=== PATIENT | female | born 2000 | race Hispanic/Latino ===

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

== ENCOUNTER 2021-01-18 13:51 | Emergency (ER) | payer OTHER ==
--- OUTSIDE RECORDS SUMMARY | 2021-01-18 13:55 | XMS REPORT | Continuity of Care Document ---
:2000 Author Organization [facility] t Address [address] [place] [address] Care Team Providers Name Role Phone Jason Echols DO Attending Clinician Uriah Rivero Attending Clinician Doctor Unassigned, Name Attending Clinician Unavailable Problems This patient has no known problems. Allergies, Adverse Reactions, Alerts This patient has no known allergies or adverse reactions. Medications This patient has no known medications. Procedures This patient has no known procedures. Encounters Start End Encounter Admission Attending Care Care Encounter Source Date/Time Date/Time Type Type Clinicians Facility Department ID 2020-11-02 2020-11-02 Patient Onesimo TNGENOVEVA [id number] 00:00:00 00:00:00 Outreach [facility] [id number] Jason [facility] [id number] ROSANA [id number] 2020-06-24 2020-06-24 Office Destiny [facility] [id number] 08:45:05 09:58:03 Visit Orin Kruse HOUSEHOLD MANAGER [id number] [facility] [id number] MATERNAL [id number] & CHILD [address] [place] [address] 2020-06-24 2020-06-24 Orders Doctor JANE [id number] 00:00:00 00:00:00 Only UnassignedOLLIE [id number] [place] [id number] Results This patient has no known results.
[2021-01-18 14:31] LABS: Urine Blood 2+ (Negative); Urine Glucose Negative (Negative); Urine Protein Negative (Negative); Urine Specific Gravity 1.025 (1.005-1.030); Urine pH 5.5 (5.0-7.0)
--- NOTE | 2021-01-18 14:59 | RAD REPORT ---
EXAM DESCRIPTION: CT - Head Brain Wo Cont - 01/18/2021 2:40 pm CLINICAL HISTORY: Seizure COMPARISON: None TECHNIQUE: Computed axial tomography of the head was obtained. IV contrast was not requested. All CT scans are performed using dose optimization technique as appropriate and may include automated exposure control or mA/KV adjustment according to patient size. FINDINGS: An intracranial bleed is not seen . The ventricles are normal in caliber. No extra-axial fluid collection is noted. A few of the images are degraded by artifact from the earrings Fluid within the sinuses/ mastoids is not seen. IMPRESSION: No acute intracranial abnormality is seen. If patient's symptoms persist MRI of the bra in would be recommended.
[2021-01-18 15:00] LABS: Absolute Lymphocytes (CBC) 1.8 K/uL (0.7-4.9); Basophils % 0.6 % (0-1.3); Hematocrit 40.7 % (36.0-45.0); Lymphocytes % 27.1 % (15.3-44.8); MPV 8.1 fL (7.6-11.3); RBC Red Blood Cell Count 4.67 M/uL (3.86-4.86)
[2021-01-18 15:14] LABS: BUN Blood Urea Nitrogen 13 mg/dL (7-18); Bicarbonate 28 mmol/L (21-32); Glucose Level 85 mg/dL (74-106); Magnesium 2.1 mg/dL (1.8-2.4); Potassium 4.2 mmol/L (3.5-5.1); Sodium Level 141 mmol/L (136-145)
[2021-01-18 15:27] LABS: Urine Specific Gravity/Preg 1.025 (1.005-1.030)
--- NOTE | 2021-01-18 15:36 | ER ---
Nurse's Notes [facility] Name: Kimberlee Sutton Age: 20 yrs Sex: Female : 2000 Arrival Date: 01/18/2021 Time: 13:56 Bed 25 Private MD: None, None Diagnosis: Unspecified convulsions Presentation: 01/18 14:15 Chief complaint: Patient states: " My said that on Sunday night it looked like ph I had a seizure. I don't really remember it though." Reports that she was lying down at the time, remembers feeling anxious when it happened. told her that she had rapid respirations and teeth were chattering when episode happened. Reports feeling tired and having headaches recently. No hx of seizures. Coronavirus screen: At this time, the client does not indicate any symptoms associated with coronavirus-19. Ebola Screen: No symptoms or risks identified at this time. Initial Sepsis Screen: Does the patient meet any 2 criteria? No. Patient's initial sepsis screen is negative. Does the patient have a suspected source of infection? No. Patient's initial sepsis screen is negative. Risk Assessment: Do you want to hurt yourself or someone else? Patient reports no desire to harm self or others. Onset of symptoms was January 18, 2021. 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 Flu vaccine is not up to date. - Social history:: Smoking status: Patient denies any tobacco usage or history of. Screenin:24 Abuse screen: Denies threats or abuse. Denies injuries from another. Nutritional ca1 screening: No deficits noted. Tuberculosis screening: No symptoms or risk factors identified. Fall Risk IV access (20 points). Assessment: 14:24 General: Appears in no apparent distress. comfortable, Behavior is calm, cooperative, ca1 appropriate for age. Pain: Complains of pain in face and scalp Pain. Neuro: Level of Consciousness is awake, alert, obeys commands, Oriented to person, place, time, situation. Cardiovascular: Heart tones S1 S2 present Capillary refill < 3 seconds Patient's skin is warm and dry. Rhythm is sinus rhythm. Respiratory: Airway is patent Respiratory effort is even, unlabored, Respiratory pattern is regular, symmetrical, Breath sounds are clear bilaterally. GI: Abdomen is flat, non-distended, Bowel sounds present X 4 quads. Abd is soft and non tender X 4 quads. : No signs and/or symptoms were reported regarding the genitourinary system. EENT: No signs and/or symptoms were reported regarding the EENT system. Derm: Skin is intact, is healthy with good turgor, Skin is pink, warm \\T\\ dry. Musculoskeletal: Circulation, motion, and sensation intact. Capillary refill < 3 seconds. 15:18 Reassessment: Patient appears in no apparent distress at this time. Patient and/or ca1 family updated on plan of care and expected duration. Pain level reassessed. Patient is alert, oriented x 3, equal unlabored respirations, skin warm/dry/pink. 16:01 Reassessment: Patient appears in no apparent distress at this time. Patient is alert, ca1 oriented x 3, equal unlabored respirations, skin warm/dry/pink. Vital Signs: 14:15 BP 128 / 94; Pulse 72; Resp 18; Temp 98.6; Pulse Ox 99% on R/A; Weight 77.11 kg; Height ph 5 ft. 6 in. (167.64 cm); 15:18 BP 113 / 69; Pulse 58; Resp 18 S; Pulse Ox 99% on R/A; ca1 16:01 BP 126 / 76; Pulse 62; Resp 16 S; Pulse Ox 99% on R/A; ca1 14:15 Body Mass Index 27.44 (77.11 kg, 167.64 cm) ph ED Course: 13:56 Patient arrived in ED. hh 13:57 None, None is Private Physician. hh 14:20 Triage completed. ph 14:20 Tigist John FNP-C is [facility]. kb 14:20 Ivan Morales MD is Attending Physician. kb 14:20 Chey Leung, LAUREL is Primary Nurse. ca1 14:24 Patient has correct armband on for positive identification. Placed in gown. Bed in low ca1 position. Call light in reach. Side rails up X2. monitor worker on. Pulse ox on. NIBP on. Warm blanket given. 14:24 Door closed. Noise minimized. Lights dimmed. ca1 14:24 Arm band placed on right wrist. ca1 14:39 CT Head Brain wo Cont In Process Unspecified. EDMS 14:51 Magnesium Sent. em1 14:51 Basic Metabolic Panel Sent. em1 14:51 CBC with Diff Sent. em1 14:51 Initial lab(s) drawn, by me, sent to lab. Inserted saline lock: 22 gauge in left em1 antecubital area, using aseptic technique. Blood collected. 15:35 Fredi Sidhu MD is Referral Physician. kb 16:02 No provider procedures requiring assistance completed. IV discontinued, intact, ca1 bleeding controlled, No redness/swelling at site. Pressure dressing applied. Administered Medications: No medications were administered Outcome: 15:35 Discharge ordered by MD. kb 16:02 Discharged to home ambulatory. ca1 16:02 Condition: stable 16:02 Discharge instructions given to patient, Instructed on discharge instructions, follow up and referral plans. Demonstrated understanding of instructions, follow-up care. 16:02 Patient left the ED. ca1 Signatures: Dispatcher [employer] EDNV Tigist John, ERMA BESTP-Colin Martino em1 Tiarra Moon, RN RN Chey Leung RN RN ca1 Marta Castrejon Corrections: (The following items were deleted from the chart) 14:35 14:34 Social history: Smoking status: ca1 ca1
--- NOTE | 2021-01-18 16:03 | EDPHYS ---
Physician Documentation [facility] Name: Kimberlee Sutton Age: 20 yrs Sex: Female : 2000 Arrival Date: 01/18/2021 Time: 13:56 Bed 25 Private MD: None, None ED Physician Ivan Morales HPI: 01/18 15:59 This 20 yrs old Female presents to ER via Ambulatory with complaints of had kb seizure 01/16/21. 16:04 The patient presents after having a single isolated seizure, that lasted an unknown kb period of time. Character of seizure(s): Loss of consciousness: it is not known if the patient experienced loss of consciousness, Motor activity: generalized, shaking all over, Incontinence: none, Apnea: the patient did not experience apnea. Seizure onset: 2 days ago. Context: the seizure(s) was witnessed, by family, , occurred at home, occurred while the patient was sitting, Contributing factors: unknown. Seizure Hx: the patient has no previous seizure history. Associated injury: The patient did not suffer any apparent associated injury. Current symptoms: Currently, the patient is not experiencing any symptoms, the patient feels back to baseline, no decreased level of consciousness, no confusion, no dysphasia, no headache, no paralysis, no visual changes. The patient has not experienced similar symptoms in the past. The patient has not recently seen a physician. Pt states she was sitting in bed talking with 2 nights ago and had a seizure. States her told her she was breathing fast and shaking all over. States she had a headache after and felt very tired. States she has been very stressed out lately. Denies any drug use. States she has been fine since the seizure occurred. Was going to go to her PCP for this, but they weren't able to get her in until next week and her wanted her evaluated sooner so she came here. 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 Flu vaccine is not up to date. - Social history:: Smoking status: Patient denies any tobacco usage or history of. ROS: 16:01 Constitutional: Negative for fever, chills, and weight loss. kb 16:01 Neuro: Positive for headache, seizure activity. 16:01 All other systems are negative. Exam: 16:01 Constitutional: This is a well developed, well nourished patient who is awake, alert, kb and in no acute distress. Head/Face: Normocephalic, atraumatic. Eyes: Pupils equal round and reactive to light, extra-ocular motions intact. Lids and lashes normal. Conjunctiva and sclera are non-icteric and not injected. Cornea within normal limits. Periorbital areas with no swelling, redness, or edema. ENT: Moist Mucous membranes Cardiovascular: Regular rate and rhythm with a normal S1 and S2. No gallops, murmurs, or rubs. No pulse deficits. Respiratory: Respirations even and unlabored. No increased work of breathing, no retractions or nasal flaring. Abdomen/GI: Soft, non-tender. No distention Skin: Warm, dry with normal turgor. Normal color. MS/ Extremity: Pulses equal, no cyanosis. Neurovascular intact. Full, normal range of motion. Neuro: Awake and alert, GCS 15, oriented to person, place, time, and situation. Moves all extremities. Normal gait. Psych: Awake, alert, with orientation to person, place and time. Behavior, mood, and affect are within normal limits. Vital Signs: 14:15 BP 128 / 94; Pulse 72; Resp 18; Temp 98.6; Pulse Ox 99% on R/A; Weight 77.11 kg; Height ph 5 ft. 6 in. (167.64 cm); 15:18 BP 113 / 69; Pulse 58; Resp 18 S; Pulse Ox 99% on R/A; ca1 16:01 BP 126 / 76; Pulse 62; Resp 16 S; Pulse Ox 99% on R/A; ca1 14:15 Body Mass Index 27.44 (77.11 kg, 167.64 cm) ph MDM: 14:22 Patient medically screened. kb 16:00 Data reviewed: vital signs, nurses notes. Data interpreted: Pulse oximetry: on room air kb is 99 %. Interpretation: normal. Counseling: I had a detailed discussion with the patient and/or guardian regarding: the historical points, exam findings, and any diagnostic results supporting the discharge/admit diagnosis, lab results, radiology results, the need for outpatient follow up, a neurologist, to return to the emergency department if symptoms worsen or persist or if there are any questions or concerns that arise at home. 01/18 14:22 Order name: CBC with Diff; Complete Time: 15:09 kb 01/18 14:22 Order name: Basic Metabolic Panel; Complete Time: 15:26 kb 01/18 14:22 Order name: Magnesium; Complete Time: 15:26 kb 01/18 14:22 Order name: CT Head Brain wo Cont; Complete Time: 15:01 kb 01/18 14:31 Order name: Urine Dipstick-Ancillary; Complete Time: 14:32 EDMS 01/18 14:41 Order name: Urine --Ancillary (enter results); Complete Time: 15:31 bd 01/18 14:22 Order name: IV Start; Complete Time: 14:51 kb 01/18 14:22 Order name: EKG; Complete Time: 14:22 kb 01/18 14:22 Order name: EKG - Nurse/Tech; Complete Time: 14:35 kb 01/18 14:22 Order name: Urine Dipstick-Ancillary (obtain specimen); Complete Time: 14:35 kb Administered Medications: No medications were administered Disposition: 18:24 Co-signature as Attending Physician, Ivan Morales MD. rn Disposition: 01/18/21 15:35 Discharged to Home. Impression: Unspecified convulsions. - Condition is Stable. - Discharge Instructions: Seizure, Adult, [id number]. - Medication Reconciliation Form, Thank You Letter, Antibiotic Education, Prescription Opioid Use form. - Follow up: Emergency Department; When: As needed; Reason: Worsening of condition. Follow up: Private Physician; When: 2 - 3 days; Reason: Recheck today's complaints, Continuance of care, Re-evaluation by your physician. Follow up: Fredi Sidhu MD; When: 1 - 2 days. Signatures: Dispatcher [employer] EDTigist Proctor, BETTIEC LINDA-Ivan Pabon MD MD rn AcobChey RN RN ca1 Corrections: (The following items were deleted from the chart) 14:35 14:34 Social history: Smoking status: ca1 ca1 15:36 15:35 01/18/2021 15:35 Discharged to Home. Impression: Unspecified convulsions. kb Condition is Stable. Forms are Medication Reconciliation Form, Thank You Letter, Antibiotic Education, Prescription Opioid Use. Follow up: Emergency Department; When: As needed; Reason: Worsening of condition. Follow up: Private Physician; When: 2 - 3 days; Reason: Recheck today's complaints, Continuance of care, Re-evaluation by your physician. kb 16:02 15:36 01/18/2021 15:35 Discharged to Home. Impression: Unspecified convulsions. ca1 Condition is Stable. Discharge Instructions: Seizure, Adult, [id number]. Forms are Medication Reconciliation Form, Thank You Letter, Antibiotic Education, Prescription Opioid Use. Follow up: Emergency Department; When: As needed; Reason: Worsening of condition. Follow up: Private Physician; When: 2 - 3 days; Reason: Recheck today's complaints, Continuance of care, Re-evaluation by your physician. Follow up: Fredi Sidhu; When: 1 - 2 days. kb
[2021-01-18 17:03] VITALS: TEMP 98.6; O2SAT 99
[2021-01-18 17:06] VITALS: BP 126/76
--- NOTE | 2021-01-19 16:01 | EKG ---
Test Date: 2021-01-18 Test Time: 14:31:48 Draw Frame Operator: KARO MEASUREMENT RESULTS: Intervals: Rate: 75 MO: 120 QRSD: 74 QT: 372 QTc: 415 Donald: P: 39 MO: 120 QRS: 80 T: 46 INTERPRETIVE STATEMENTS: Normal sinus rhythm with sinus arrhythmia Normal ECG No previous ECG available for comparison Electronically Signed On 01-19-21 16:00:02 CDT by Pato Larose
== END 2021-01-18 16:02 | disposition home or self-care (01) ==
LOC: ER 13:51
DX: R56.9 Unspecified convulsions (principal)
CPT/HCPCS: 36415; 70450; 80048; 81003; 81025; 83735; 85025; 93005; 99284

== ENCOUNTER 2022-01-08 22:13 | Emergency (ER) | payer OTHER ==
[2022-01-08] MEDS ORDERED: predniSONE 20 MG TAB ONE (22:48)
[2022-01-08] MEDS ORDERED: SMZ./TMP. 800/160 MG TABLET ONE (22:48)
--- NOTE | 2022-01-08 22:49 | ER ---
Nurse's Notes [facility] Name: Kimberlee Sutton Age: 21 yrs Sex: Female : 2000 Arrival Date: 01/08/2022 Time: 22:23 Bed 9 Private MD: Diagnosis: Toxic effect of venom of bees, undetermined, initial encounter Presentation: 01/08 22:28 Chief complaint: Patient states: Bee sting to right thigh yesterday - today it is ld1 swollen and red. Coronavirus screen: At this time, the client does not indicate any symptoms associated with coronavirus-19. Ebola Screen: No symptoms or risks identified at this time. Onset: The symptoms/episode began/occurred suddenly. Anaphylaxis evaluation, no signs or symptoms of anaphylaxis were noted. Initial Sepsis Screen: Does the patient meet any 2 criteria? No. Patient's initial sepsis screen is negative. Does the patient have a suspected source of infection? No. Patient's initial sepsis screen is negative. Risk Assessment: Do you want to hurt yourself or someone else? Patient reports no desire to harm self or others. Onset of symptoms was January 08, 2022. 22:28 Method Of Arrival: Ambulatory ld1 22:28 Acuity: MENDOZA 4 ld1 Triage Assessment: 22:29 General: Appears in no apparent distress. comfortable, Behavior is calm, cooperative, ld1 appropriate for age. Pain: Denies pain. EENT: No signs and/or symptoms were reported regarding the EENT system. Neuro: Level of Consciousness is awake, alert, obeys commands, Oriented to person, place, time, situation. Cardiovascular: Capillary refill < 3 seconds Patient's skin is warm and dry. Respiratory: Airway is patent Respiratory effort is even, unlabored. Derm: Rash noted that is on right leg. 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 - Social history:: Smoking status: Patient denies any tobacco usage or history of. Patient/guardian denies using alcohol. - Family history:: not pertinent. - Hospitalizations: : No recent hospitalization is reported. Screenin:03 Abuse screen: Denies threats or abuse. Denies injuries from another. Nutritional lp1 screening: No deficits noted. Tuberculosis screening: No symptoms or risk factors identified. Fall Risk None identified. Assessment: 22:40 General: Appears in no apparent distress. Behavior is calm, cooperative. Pain: lp1 Complains of pain in lateral aspect of right thigh. Neuro: Level of Consciousness is awake, alert, obeys commands. Cardiovascular: Patient's skin is warm and dry. Respiratory: Respiratory effort is even, unlabored. GI: No signs and/or symptoms were reported involving the gastrointestinal system. : No signs and/or symptoms were reported regarding the genitourinary system. EENT: No signs and/or symptoms were reported regarding the EENT system. Derm: redness, swelling noted to lateral right upper thigh. Musculoskeletal: No deficits noted. Vital Signs: 22:28 BP 112 / 64; Pulse 79; Resp 18; Temp 98.4(O); Pulse Ox 100% on R/A; Weight 65.77 kg; ld1 Height 5 ft. 6 in. (167.64 cm); Pain 0/10; 22:28 Body Mass Index 23.40 (65.77 kg, 167.64 cm) ld1 ED Course: 22:23 Patient arrived in ED. bp1 22:29 Triage completed. ld1 22:29 Arm band placed on right wrist. ld1 22:31 Ivan Morales MD is Attending Physician. rn 22:41 Yumiko Hernandez RN is Primary Nurse. lp1 23:03 No provider procedures requiring assistance completed. Patient did not have IV access lp1 during this emergency room visit. 23:04 Patient has correct armband on for positive identification. lp1 Administered Medications: 22:44 Drug: predniSONE 60 mg Route: PO; lp1 23:07 Follow up: Response: No adverse reaction lp1 22:45 Drug: Bactrim (trimethoprim-sulfamethoxazole) (160 mg-800 mg (DS) 1 tablet Route: PO; lp1 23:07 Follow up: Response: No adverse reaction lp1 Medication: 23:03 VIS not applicable for this client. lp1 Outcome: 22:49 Discharge ordered by . rn 23:04 Discharged to home ambulatory. lp1 23:04 Condition: good 23:04 Discharge instructions given to patient, Instructed on discharge instructions, follow up and referral plans. medication usage, Demonstrated understanding of instructions, follow-up care, medications. 23:04 Prescriptions given X 2. lp1 23:07 Patient left the ED. lp1 Signatures: Ivan Morales MD MD rn Pena, Laura, RN RN lp1 Delmy King Lauren RN RN ld1
--- NOTE | 2022-01-08 22:49 | EDPHYS ---
Physician Documentation [facility] Name: Kimberlee Sutton Age: 21 yrs Sex: Female : 2000 Arrival Date: 01/08/2022 Time: 22:23 Bed 9 Private MD: ED Physician Ivan Morales HPI: 01/08 22:44 This 21 yrs old Female presents to ER via Ambulatory with complaints of Bee rn Sting. 22:44 The patient presents with pain, swelling, tenderness. The complaints affect the right rn quadriceps. Onset: The symptoms/episode began/occurred yesterday. Modifying factors: The symptoms are alleviated by nothing. the symptoms are aggravated by nothing. Severity of symptoms: At their worst the symptoms were mild, in the emergency department the symptoms are unchanged. The patient has not experienced similar symptoms in the past. The patient has not recently seen a physician. Pt reports stung by bee yesterday, to right anterior thigh, got worse today with increased swelling and painful. No fever. Able to work but got sore today.. 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 - Social history:: Smoking status: Patient denies any tobacco usage or history of. Patient/guardian denies using alcohol. - Family history:: not pertinent. - Hospitalizations: : No recent hospitalization is reported. ROS: 22:44 Constitutional: Negative for fever, chills, and weight loss, Cardiovascular: Negative rn for chest pain, palpitations, and edema, Respiratory: Negative for shortness of breath, cough, wheezing, and pleuritic chest pain, Abdomen/GI: Negative for abdominal pain, nausea, vomiting, diarrhea, and constipation, MS/Extremity: + bee sting to right anterior thigh Skin: + induration and swelling to right thigh Exam: 22:44 Constitutional: This is a well developed, well nourished patient who is awake, alert, rn and in no acute distress. Cardiovascular: Regular rate and rhythm. No pulse deficits. Skin: Warm, dry, 8cm area of induration with warmth and erythema, no fluctuance, no stinger identified. MS/ Extremity: Pulses equal, no cyanosis. Neurovascular intact. Full, normal range of motion. Equal circumference. Vital Signs: 22:28 BP 112 / 64; Pulse 79; Resp 18; Temp 98.4(O); Pulse Ox 100% on R/A; Weight 65.77 kg; ld1 Height 5 ft. 6 in. (167.64 cm); Pain 0/10; 22:28 Body Mass Index 23.40 (65.77 kg, 167.64 cm) ld1 MDM: 22:32 Patient medically screened. rn 22:44 Differential diagnosis: bee sting, cellulitis, local allergic reaction. Data reviewed: rn vital signs, nurses notes, and as a result, I will discharge patient. Counseling: I had a detailed discussion with the patient and/or guardian regarding: the historical points, exam findings, and any diagnostic results supporting the discharge/admit diagnosis, the need for outpatient follow up, to return to the emergency department if symptoms worsen or persist or if there are any questions or concerns that arise at home. Special discussion: I discussed with the patient/guardian in detail that at this point there is no indication for admission to the hospital. It is understood, however, that if the symptoms persist or worsen the patient needs to return immediately for re-evaluation. Administered Medications: 22:44 Drug: predniSONE 60 mg Route: PO; lp1 23:07 Follow up: Response: No adverse reaction lp1 22:45 Drug: Bactrim (trimethoprim-sulfamethoxazole) (160 mg-800 mg (DS) 1 tablet Route: PO; lp1 23:07 Follow up: Response: No adverse reaction lp1 Disposition Summary: 01/08/22 22:49 Discharge Ordered Location: Home rn Problem: new rn Symptoms: are unchanged rn Condition: Stable rn Diagnosis - Toxic effect of venom of bees, undetermined, initial encounter rn Followup: rn - With: Private Physician - When: As needed - Reason: Recheck today's complaints, Re-evaluation by your physician Discharge Instructions: - Discharge Summary Sheet rn - Bee, Wasp, or Hornet Sting, Adult rn Forms: - Medication Reconciliation Form rn - Thank You Letter rn - 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
[2022-01-08 23:12] VITALS: BP 112/64; TEMP 98.4; O2SAT 100
--- OUTSIDE RECORDS SUMMARY | 2022-01-09 04:38 | XMS REPORT | Continuity of Care Document ---
:2000 Author Organization [facility] t Address [address] [place] [address] Care Team Providers Name Role Phone PCP, DOES NOT HAVE A Primary Care Physician Unavailable Uriah RUIZ Attending Clinician Unavailable Uriah Rivero Attending Clinician Jason Echols DO Attending Clinician Doctor Unassigned, Name Attending Clinician Unavailable Payers Payer Name Policy Type Policy Number Effective Date Expiration Date [facility] [id number] 2016 [facility] MEDICAID 00:00:00 Problems Condition Condition Condition Status Onset Resolution Last Treating Co mments Source Name Details Category Date Date Treatment Clinician Date Nexplanon Nexplanon Disease Active 2019-[address] in [address] 1-12 ity of 00:00: [address] Other Other Disease Active 2019- Univers general general 0-29 ity of counseling [place] advice and advice 00 Me dical for for Branch contracept contracept pooja pooja management management Flu Flu Disease Active Univers vaccine vaccine 1-27 ity of need need 00:00: [address] Allergies, Adverse Reactions, Alerts Allergy Allergy Status Severity Reaction(s) Onset Inactive Treating Comm ents Source Name Type Date Date Clinician NO KNOWN Drug Active Univers ALLERGIE Class ity of [facility] Social History Social Habit Start Date Stop Date Quantity Comments Source Exposure to Not sure University SARS-CoV-2 [place] [facility] (event) Branch Alcohol intake 2021-07-15 2021-07-15 Current drinker Unive rsity of 00:00:00 00:00:00 of alcohol [place] [facility] (finding) Branch History SDOH 2020-06-10 2020-06-10 99 University o f Alcohol Frequency 00:00:00 00:00:00 [place] [facility] History SDOH 2020-06-10 2020-06-10 99 University o f Alcohol Std 00:00:00 00:00:00 [place] [facility] Drinks Branch History SDOH 2020-06-10 2020-06-10 99 University o f Alcohol Binge 00:00:00 00:00:00 [place] [facility] Alcohol Comment 2020-06-10 2020-06-10 social Universit y of 00:00:00 00:00:00 [facility] Tobacco use and 2019-09-08 2019-09-08 Never used Universit y of exposure 00:00:00 00:00:00 [facility] Branch History of 2017-09-08 2019-07-09 Cigarette Smoker Universi ty of tobacco use 00:00:00 00:00:00 [facility] Sex Assigned At [birth year] Universit y of 00:00:00 00:00:00 [facility] Smoking Status Start Date Stop Date Source Former smoker 2019-09-08 00:00:00 2019-09-08 00:00:[address] [facility] Medications Ordered Filled Start Stop Current Ordering Indication Dosage Frequency Signature Comments Components Source Medication Medication Date Date Medication? Clinician (SIG) Name Name docusate Yes [id number] 240mg Take 1 U nivers calcium 240 8-19 capsule by it y of mg capsule 00:00: mouth once [place] daily as Medical needed for Branch Constipati on. ibuprofen Yes [id number] 600mg Take 1 Univers 600 mg 8-19 tablet by ity of tablet 00:00: mouth [place] 00 every 6 Medical (six) Branch hours as needed (Pain). Take with food or milk. Iron Fum & Yes [id number] 1{capsu Take 1 Univers P-FA-Vit B 8-19 le} capsule by ity of & C No.9 00:00: mouth [place] (INTEGRA 00 daily. Medical PLUS) 125 Branch mg iron- 1 mg Cap Immunizations Ordered Filled Immunization Date Status Comments Sourc e Immunization Name Name Influenza Virus 2020-06-10 Completed Universit y of Vaccine Quad .5 mL 00:00:00 [facility] IM 6+ MO Branch Varicella 2020-03-31 Completed [facility] (varivax)(chicken 00:00:00 [place] [facility] ed[facility] pox) Branch HPV9 2020-03-31 Completed [facility] 00:00:00 [facility] TDAP 2020-01-15 Completed [facility] 00:00:00 [facility] Influenza Virus 2019-09-08 Completed Universit y of Vaccine Quad .5 mL 00:00:00 [facility] IM 6+ MO Branch HPV 2019-01-31 Completed [facility] 00:00:00 [facility] TDAP 2017-01-12 Completed [facility] 00:00:00 [facility] Influenza Virus 2016-09-08 Completed Universit y of Vaccine Quad IM 3+ 00:00:00 [facility] Vital Signs Vital Name Observation Time Observation Value Comments Source Systolic blood 2021-09-21 22:23:00 127 mm[Hg] Univer sity of pressure [facility] Diastolic blood 2021-09-21 22:23:00 82 [facility]Hg[facility] 2021-09-21 22:23:00 87 /min [facility] Body temperature 2021-09-21 22:23:00 36.61 Clarisse [facility] Respiratory rate 2021-09-21 22:23:00 20 /min [facility] Body height 2021-09-21 22:23:00 167.6 cm [facility] Body weight 2021-09-21 22:23:00 70.217 kg [facility] BMI 2021-09-21 22:23:00 24.99 kg/m2 [facility] Procedures Procedure Date / Time Performing Clinician Source Performed GC & CHLAMYDIA 2021-09-21 22:47:00 Orin Ruiz [facility] AMPLIFIED [facility] TRICHOMONAS AMPLIFIED 2021-09-21 22:47:00 Orin Ruiz U [facility] POCT TEST 2021-09-21 00:00:00 Orin Ruiz Uni [facility] POCT URINALYSIS W/O 2021-09-21 00:00:00 Orin Ruiz [facility] Encounters Start End Encounter Admission Attending Care Care Encounter Source Date/Time Date/Time Type Type Clinicians Facility Department ID 2021-10-19 2021-10-19 Outpatient R DESTINY [facility] [id number] [facility] 13:15:00 13:15:[address] o [address] [facility] 2021-09-21 2021-09-21 Office Destiny [facility] [id number] Univers 16:00:00 16:50:57 Visit Orin Kruse [employer] [id number] [facility] [id number] Bib as MATERNAL [id number] Med ical & CHILD [address] [place] [address] 2020-11-02 2020-11-02 Patient Onesimo [facility] [id number] 00:00:00 00:00:00 Outreach [facility] [id number] [facility] [id number] PAVHIRO [id number] 2020-06-24 2020-06-24 Office Destiny [facility] [id number] 08:45:05 09:58:03 Visit Orin Kruse [employer] [id number] [facility] [id number] MATERNAL [id number] & CHILD [address] [place] [address] 2020-06-24 2020-06-24 Orders Doctor BUCK [id number] 00:00:00 00:00:00 Only Unassigned, OLLIE [id number] [place] [facility] [id number] Results Test Description Test Time Test Comments Results Result Comments Source POCT TEST 2021-09-21 22:45:00 Test Item Value Reference Range Interpretation Comme nts POCT PREG (test code = 1605) Negative On board controls acceptable with C Line (test code = 3574) Yes POCT PREG LOT # (test code = 3575) POCT PREG TEST DATE (test code = 3576[id number] 22:44:00 Test Item Value Reference Range Interpretation Comments POCT PREG (test code = 1605) Negative On board controls acceptable with C Yes Line (test code = 3574) POCT PREG LOT # (test code = 3575) POCT PREG TEST DATE (test code = 3576) [facility] [id number] 22:35:00 Test Item Value Reference Range Interpretation Comments POCT PH U (test code = 3254) 5 mg/dl 5-8 POCT U LEUK EST (test code = trace Negative - Negative 3263) POCT U NIT (test code = 3262) negative Negative - Negative POCT U PROT (test code = 3259) trace Negative - Negative POCT U GLU (test code = 3256) normal Negative - Negative POCT U KETONE (test code = 3258) 1+ Negative - Negative POCT U BLD (test code = 3257) negative Negative - Negative [facility]
== END 2022-01-08 23:07 | disposition home or self-care (01) ==
LOC: ER 22:13
DX: S70.361A Insect bite (nonvenomous), right thigh, initial encounter (principal); T63.441A Toxic effect of venom of bees, accidental (unintentional), initial encounter; Y93.9 Activity, unspecified; Y92.9 Unspecified place or not applicable; Y99.9 Unspecified external cause status
CPT/HCPCS: 99283; J7512